=== PATIENT | female | born 1945 | race Caucasian/White ===

== ENCOUNTER 2018-03-15 16:18 | Emergency (ER) | payer MEDICARE, OTHER ==
[~2018-03-15] VITALS: Ht 162.6 cm; Wt 69.9 kg
--- NOTE | 2018-03-15 16:48 | NUR ---
positive r dorsalis pedis and tibialis pulse by doppler
--- NOTE | 2018-03-15 17:39 | ED Lower Extremity ---
General Chief Complaint: Lower Extremity Stated Complaint: R LEG SWELLING Nursing Triage Note: pt presents to ed [facility] accompanied by daughter and with complaints of r calf and foot swelling and pain starting wednesday. Nursing Sepsis Screen: No Definite Risk Source: patient Exam Limitations: no limitations History of Present Illness Date Seen by Provider: Mar 15, 2018 Time Seen by Provider: 16:50 Initial Comments Here with report of right lower extremity edema with concerns of blood clot. Patient has history of previous partial hip replacement and stroke afterwards. She is currently on Eliquis twice a day and is taking that as directed. Patient hasn't had stroke and stroke effects the right side. She does get about with a walker now. She has difficulty with communication. Denies any significant pain to that extremity. Does sleep in a recliner or stay in a recliner very often. Onset: yesterday Severity: moderate Pain/Injury Location: right leg, right foot Method of Injury: unknown Modifying Factors: Improves With Immobilization, Improves With Rest Allergies and Home Medications Allergies Coded Allergies: Itefnre-Tbz-Uap Reductase Inhibitor (Verified Allergy, Unknown, 03/15/18) Patient Home Medication List Home Medication List Reviewed: Yes Review of Systems Constitutional: see HPI; No chills, No fever Respiratory: no symptoms reported Cardiovascular: edema, other (irregular heart beat chronically) Gastrointestinal: No abdominal pain, No nausea, No vomiting Musculoskeletal: see HPI Skin: No change in color, No lesions Psychiatric/Neurological: See HPI Past Cdfskge-Qtasdr-Slxbdy Hx Past Med/Social Hx: Reviewed Nursing Past Med/Soc Hx Patient Social History Alcohol Use: Denies Use Recreational Drug Use: No 2nd Hand Smoke Exposure: No Recent Foreign Travel: No Contact w/Someone Who Travel: No Recent Infectious Disease Expo: No Recent Hopitalizations: No Physical Abuse: No Sexual Abuse: No Seasonal Allergies Seasonal Allergies: No Past Medical History Surgeries: Yes Abdominal, Orthopedic Respiratory: No Cardiac: Yes (athersclerotic heart disease) High Cholesterol, Irregular Heartbeat Neurological: Yes (hemiplegia, hemiparisiscerebral infarct) Gastrointestinal: Yes Gastroesophageal Reflux Musculoskeletal: Yes (generalized muscle weakness) HEENT: No Cancer: No Psychosocial: No Integumentary: No Blood Disorders: No Adverse Reaction/Blood Tranf: No Family Medical History Reviewed Nursing Family Hx Physical Exam Vital Signs Vital Signs - First Documented 03/15/18 16:28 Temp 98.8 Pulse 103 Resp 16 B/P (MAP) 118/100 (106) Pulse Ox 94 Capillary Refill : Less Than 3 Seconds Height, Weight, BMI Height: 5'4.00" Weight: 154lbs. oz. 69.290308sz; BMI Method:Stated General Appearance: WD/WN, no apparent distress Cardiovascular: regular rate, rhythm, no murmur Respiratory: lungs clear, normal breath sounds Gastrointestinal: non tender, soft Legs: left leg non-tender, left leg normal inspection, left leg normal range of motion; right leg swelling, right leg other (non-tender and seems to be simple edema) Ankles: left ankle non-tender, left ankle normal inspection, left ankle normal range of motion; right ankle swelling, right ankle other (nontender and simple edema) Neurologic/Psychiatric: alert, oriented x 3 Skin: normal color, warm/dry Progress/Results/Core Measures Results/Orders Vital Signs/I&O 03/15/18 16:28 Temp 98.8 Pulse 103 Resp 16 B/P (MAP) 118/100 (106) Pulse Ox 94 Blood Pressure Mean: 106 Progress Progress Note : Progress Note Seen and evaluated. Doppler ultrasound pulses to right leg shows strong dorsalis pedis and posterior tibial pulses. Edema seems to be more related to postoperative function and chronic use of the recliner. Patient is on Eliquis appropriately and this decreases my concern for blood clots. I did speak with LISSY Hadley who would be willing to see the patient at the [facility] to help assist with care as the patient and family were not happy with their current primary care doctor. Camilla will assist with orders for the fdc for leg elevation and wraps as needed. Family very appreciative of their consult. Discharge back to [facility]dc with return precautions. Patient and family verbalize understanding instructions and agreement with plan. Departure Impression Primary Impression: Dependent edema Disposition: 01 HOME, SELF-CARE Condition: Stable Departure-Patient Inst. Decision time for Depature: 17:40 Referrals: RAJ NICHOLS DO (PCP/Family) Primary Care Physician RANDY WATTERS MD Patient Instructions: Dependent Edema (DC) Add. Discharge Instructions: All discharge instructions reviewed with patient and/or family. Voiced understanding. Follow-up with LISSY Hadley or Trenton Calderon APRN as discussed. Elevate the foot and leg as much as possible. Return for worse pain, fever, vomiting, weakness, breathing problems or other concerns as needed. MAGDI SMITH MD Mar 15, 2018 17:39
[2018-03-15 18:47] LABS: BILIRUBIN,URINE NEGATIVE (NEGATIVE); CLARITY,URINE SLIGHTLY CLOUDY; COLOR,URINE YELLOW; GLUCOSE, URINE (UA) NEGATIVE (NEGATIVE); KETONES,URINE NEGATIVE (NEGATIVE); LEUKOCYTE ESTERASE ,URINE NEGATIVE (NEGATIVE); NITRITE,URINE NEGATIVE (NEGATIVE); PH,URINE 8 (5-9); PROTEIN,URINE NEGATIVE (NEGATIVE); UROBILINOGEN,URINE NORMAL (NORMAL)
[2018-03-15 18:54] LABS: AMORPHOUS SEDIMENT,UR FEW AMOR PHOSPHATE /LPF; BACTERIA,URINE NEGATIVE /HPF; SQUAMOUS EPITHELIAL CELL,UR 0-2 /HPF
[2018-03-15 18:55] VITALS: BP 118/92
== END 2018-03-15 18:55 | disposition home or self-care (01) ==
LOC: ER 16:21
DX: R60.0 Localized edema (principal); E78.00 Pure hypercholesterolemia, unspecified; I25.10 Atherosclerotic heart disease of native coronary artery without angina pectoris; K21.9 Gastro-esophageal reflux disease without esophagitis; Z86.73 Personal history of transient ischemic attack (TIA), and cerebral infarction without residual deficits; Z88.8 Allergy status to other drugs, medicaments and biological substances; Z79.01 Long term (current) use of anticoagulants; Z98.890 Other specified postprocedural states
CPT/HCPCS: 81000; 99283

== ENCOUNTER 2018-03-21 06:25 | Outpatient (CLI) | payer MEDICARE ==
[~2018-03-21] VITALS: Ht 162.6 cm; Wt 69.9 kg
[2018-03-21] MEDS ORDERED: ATOR20TA66 PO (15:46)
[2018-03-21] MEDS ORDERED: ASPI-586 PO (15:46)
[2018-03-21] MEDS ORDERED: PANT40TA3 PO (15:46)
[2018-03-21] MEDS ORDERED: CARV25TA PO (15:46)
[2018-03-21] MEDS ORDERED: AMLO5TAB7 PO (15:46)
[2018-03-21] MEDS ORDERED: ACET-2267 PO (15:46)
[2018-03-21] MEDS ORDERED: APIX5TAB PO (15:46)
[2018-03-21] MEDS ORDERED: LOSA50TA7 PO (15:46)
== END 2018-03-21 15:47 | disposition home or self-care (01) ==
LOC: PREOP 06:25
PROVIDERS: ATTEND Surgery
DX: Z01.818 Encounter for other preprocedural examination (principal)

== ENCOUNTER 2018-03-28 07:04 | Day surgery (SDC) | payer MEDICARE ==
[~2018-03-28] VITALS: Ht 162.6 cm; Wt 69.9 kg
[~2018-03-28 07:04] MED LIST: ACET-2267 PO; AMLO5TAB7 PO; APIX5TAB PO; ASPI-586 PO; ATOR20TA66 PO; CARV25TA PO; LOSA50TA7 PO; PANT40TA3 PO
[2018-03-28] MEDS ORDERED: NS IV 500 ML 500 ML IV PRN (07:16)
[2018-03-28] MEDS ORDERED: NS IV 500 ML 500 ML ONE (07:16)
[2018-03-28 07:30] VITALS: BP 120/76
[2018-03-28] MEDS ORDERED: MIDAZOLAM 2 MG/2 ML (VERSED) VIAL IVP ONE (07:30)
[2018-03-28] MEDS ORDERED: HURRICAINE EXT TUBE (BENZOCAINE) XX PRN (07:30)
[2018-03-28] MEDS ORDERED: fentaNYL INJECTION 100 MCG/2 ML AMP IVP ONE (07:30)
[2018-03-28] MEDS ORDERED: fentaNYL INJECTION 100 MCG/2 ML AMP ONE (08:15)
[2018-03-28] MEDS ORDERED: MIDAZOLAM 2 MG/2 ML (VERSED) VIAL ONE ×4 (08:16)
[2018-03-28] MEDS ORDERED: HURRICAINE EXT TUBE (BENZOCAINE) ONE (08:16)
--- NOTE | 2018-03-28 08:27 | Conscious Sedation/ASA ---
Conscious Sedation Pre-Proced Time 08:27 ASA Score 2 For ASA 3 and 4: Consider anesthesia and medical clearance. Also, for patients with a history of failed moderate sedation consider anesthesia. Airway Lungs Heart ASA score ASA 1: a normal healthy patient ASA 2: a patient with a mild systemic disease (mid diabetes, controlled hypertension, obesity ASA 3: a patient with a severe systemic disease that limits activity (angina , COPD, prior Myocardial infarction) ASA 4: a patient with an incapacitating disease that is a constant threat to life (CHF, renal failure) ASA 5: a moribund patient not expected to survive 24 hrs. (ruptured aneurysm) ASA 6: a declared brain patient whose organs are being harvested. For emergent operations, add the letter E after the classification Mallampati Classification Grade 1 Sedation Plan Discussed options with patient/fam The patient is an appropriate candidate to undergo the planned procedure, sedation, and anesthesia. The patient immediately re-assessed prior to indication. MARCELINA BARRON MD Mar 28, 2018 08:27
--- NOTE | 2018-03-28 08:45 | Endo Procedure Record ---
Endo Procedure Report Date of Procedure Last Colonoscopy: Yes (unsure) Mar 28, 2018 Surgeon (s) MARCELINA BARRON MD Post Procedure/Op Diagnosis same Procedure Performed endoscopic removal of PEG tube Description of Procedure Anesthesia Type: Conscious Sedation Specimen(s) collected/removed None Description of the Procedure Indication for the procedure: This lady required a PEG tube to manage her nutrition with she was recovering from a stroke. Having received normal eating , it was felt reasonable to remove the PEG tube, using endoscopic snaring technique. Informed consent was obtained after reviewing the procedure in detail. Description of the procedure: She was placed supine on the gurney and conscious sedation achieved. The flexible gastroscope was introduced down the esophagus into the stomach. The flange of the PEG tube was snared and the tube itself disconnected outside the abdominal wall. The flange was removed uneventfully. A sterile dressing was applied over the tube site. She tolerated the procedure well and was taken back to the nursing area in a stable condition. Impression: Endoscopic removal of PEG tube. Copy Copies To 1: RAJ NICHOLS XAVIER M MD Mar 28, 2018 08:45
--- NOTE | 2018-03-28 08:46 | Discharge Inst-Simple/Standard ---
Discharge Inst-Standard Discharge Medications New, Converted or Re-Newed RX: Other Patient Instructions/Follow Up Plan of Care/Instructions/FU: to call, if any concerns arise Activity as Tolerated: Yes Discharge Diet: No Restrictions MARCELINA BARRON MD Mar 28, 2018 08:46
[2018-03-28 09:10] VITALS: BP 150/63
[2018-03-28 09:35] VITALS: BP 127/89
[2018-03-28 10:45] VITALS: BP 127/89
== END 2018-03-28 10:45 | disposition home or self-care (01) ==
LOC: ENDO 07:04
PROVIDERS: ATTEND Surgery
DX: Z86.73 Personal history of transient ischemic attack (TIA), and cerebral infarction without residual deficits (principal); I10 Essential (primary) hypertension; E11.9 Type 2 diabetes mellitus without complications; Z79.82 Long term (current) use of aspirin; Z79.01 Long term (current) use of anticoagulants; Z79.84 Long term (current) use of oral hypoglycemic drugs; Z79.899 Other long term (current) drug therapy

== ENCOUNTER → 2018-07-05 | Outpatient (CLI) | payer MEDICARE ==
[~2018-07-05] MED LIST changes: -AMLO5TAB7 PO; +AMLO5TAB9 PO; +LOSA50TA63 PO; -LOSA50TA7 PO
--- NOTE | 2018-07-05 10:06 | Diagnostic Imaging Report ---
PROCEDURE: US Thyroid. TECHNIQUE: Multiple real-time grayscale images were obtained of the thyroid in various projections. INDICATION: Thyroid mass. No priors. The right thyroid lobe measured 3.8 x 2.3 x 2.8 cm. The largest right lobe mass and its mid to upper third measures 1.2 x 1.0 cm and shows a curvilinear peripheral calcifications and is centrally hypoechoic its borders well-defined. The left lobe 4.6 x 2.3 x 2.0 cm. The largest left lobe mass is in its upper pole measuring 1.7 x 1.6 cm as a relatively homogenous mildly hypoechoic dense mass with well-defined borders. Additional smaller subcentimeter hypoechoic nodules are present few of which are peripheral calcifications. IMPRESSION: Thyroidal volume within normal limits. There are multiple bilateral nodules of mixed echotexture with peripheral calcifications suggestive of multiple adenomas showing varying degrees of cystic degeneration. A followup exam in 6-12 months suggested. Dictated by: Dictated on workstation # [id number]
== END ==
LOC: RAD 08:51
PROVIDERS: ATTEND Internal Medicine
DX: E04.2 Nontoxic multinodular goiter (principal)
CPT/HCPCS: 76536

== ENCOUNTER 2018-07-08 16:05 | Inpatient (IN) | payer MEDICARE ==
[~2018-07-08] VITALS: Ht 160 cm; Wt 68.0 kg
[2018-07-08] VITALS (13 sets, daily range): BP systolic 97–143; BP diastolic 52–84
--- NOTE | 2018-07-08 16:05 | NUR ---
Pt arrives per [facility], pt is confused and combative. Pt can not make words to questions asked. arriving reporting recent stroke of 01/2018 with residual speech issues and right sided weakness. Very difficult to assess with start of [facility] with Dr Potter presenting to room. Pt is agitated and trying to make pt understand testing attempted. is poor historical facts for physicians. went to bathroom just prior to EMS dispatch returning to note pt sitting in her lounge chair and body was shaking, foam from mouth with blood noted. Pt presents incont bowel and bladder with agitation and constant movememt not following commands well.
--- NOTE | 2018-07-08 16:22 | NUR ---
Pt awaited in CT hallway from 1615 as patient on table prior to her same protocol. Transferred pt to table 1622, pt sitting up and won't lie back and not appearance trying to vomit. A trash can placed in front of patient for rapid collection of small undigested food emesis.
[2018-07-08] MEDS ORDERED: ONDANSETRON 4 MG/2 ML (SDV) Z0FRAN ONE (16:24)
--- NOTE | 2018-07-08 16:28 | NUR ---
Zofran [address] in [address] per verbal order of Dr Potter.
[2018-07-08 16:31] LABS: BASOPHILS # (AUTO) 0.1 10^3/uL (0.0-0.1); BASOPHILS % (AUTO) 1 % (0-10); EOSINOPHILS # (AUTO) 0.3 10^3/uL (0.0-0.3); EOSINOPHILS % (AUTO) 4 % (0-10); HEMATOCRIT 44 % (35-52); LYMPHOCYTES # (AUTO) 2.3 X 10^3 (1.0-4.0); LYMPHOCYTES % (AUTO) 30 % (12-44); MEAN CORPUSCULAR HEMOGLOBIN 30 PG (25-34); MEAN CORPUSCULAR HGB CONC 34 G/DL (32-36); MEAN CORPUSCULAR VOLUME 89 FL (80-99); MEAN PLATELET VOLUME 10.9 FL (7.4-10.4); MONOCYTES # (AUTO) 0.7 X 10^3 (0.0-1.0); MONOCYTES % (AUTO) 9 % (0-12); NEUTROPHILS # (AUTO) 4.3 X 10^3 (1.8-7.8); NEUTROPHILS % (AUTO) 56 % (42-75); PLATELET COUNT 202 10^3/uL (130-400); RED CELL DISTRIBUTION WIDTH 13.9 % (10.0-14.5); WHITE BLOOD COUNT 7.6 10^3/uL (4.3-11.0)
--- NOTE | 2018-07-08 16:34 | NUR ---
CT completed and pt returned to room and monitors resuming. Pt placed in a gown after removal of clothing and pericare bath for incont bowel and bladder.
--- NOTE | 2018-07-08 16:40 | NUR ---
Pt is now resting HOB of post pericare and fresh linens. remains present. Pt trying to speak few simple word answers more clearly.
--- NOTE | 2018-07-08 16:45 | NUR ---
Dr Potter discussing with pt and family the need for Keppra.
[2018-07-08 16:46] LABS: INR 1.2 (0.8-1.4); PROTHROMBIN TIME PATIENT 15.8 SEC (12.2-14.7)
[2018-07-08] MEDS ORDERED: LEVETIRACETAM INJECTION 1,000 MG in NS (IVPB) 100 ML IV STA (16:46)
--- NOTE | 2018-07-08 16:47 | Diagnostic Imaging Report ---
PROCEDURE: CT head wo r/o stroke. TECHNIQUE: Multiple contiguous axial images were obtained through the brain without the use of intravenous contrast. Auto Exposure Controls were utilized during the CT exam to meet ALARA standards for radiation dose reduction. INDICATION: Stroke. Anticoagulation therapy. COMPARISON: None. FINDINGS: Chronic encephalomalacia in the left MCA distribution and both occipital lobes, consistent with chronic infarcts. No CT evidence of acute territorial infarction. No intracranial hemorrhage, mass effect, hydrocephalus, or extra-axial fluid collections. The visualized paranasal sinuses and mastoids are clear. Osseous structures are intact. IMPRESSION: 1. No acute intracranial CT findings. 2. Numerous chronic infarcts, as above. Findings discussed with Dr. Nathaly Potter at 4:43 p.m. on 07/08/2018. Dictated by: Dictated on workstation # [id number]
[2018-07-08 17:02] LABS: BAND NEUTROPHILS 1 %; BASOPHILS % (MANUAL) 0 %; EOSINOPHILS % (MANUAL) 6 %; LYMPHOCYTES % (MANUAL) 34 %; MONOCYTES % (MANUAL) 10 %; NEUTROPHILS % (MANUAL) 49 %; RBC MORPH NORMAL
--- NOTE | 2018-07-08 17:02 | NUR ---
Keppra 1000 mg/ NS 100 ml = 110 ml began to infuse as ordered.
--- NOTE | 2018-07-08 17:14 | ED Neurological Problem ---
General Chief Complaint: Neuro-Stroke Like Symptoms Stated Complaint: SEIZURE LIKE SYMPTOMS Source: patient, family, EMS Exam Limitations: no limitations, other (ACUTE MENTAL STATUS-MEDICAL CONDITION) History of Present Illness Date Seen by Provider: Jul 08, 2018 Time Seen by Provider: 16:10 Initial Comments This is a 72 y/o f with pmhx of significant CVAs including a large L MCA with residual slurred speech, dysphagia, mild expressive aphasia and RUE/RLE weakness. Is minimally ambulatory and lives with spouse. Also history of A-fib. Is rate controlled and on Apixaban. Spouse was out of her room approx 20 mins and came back to witness the last 30-60secs of a tonic-clonic seizure with ? increased R sided seizure symptoms. Was then unresponsive and he called EMS. On EMS evaluation pt had normal BS, appeared post-ictal but seemed to be improving. Pt is alert to self only, she has slurred speech and appears confused /disoriented. She denies any pain. Allergies and Home Medications Allergies Coded Allergies: Elfkceo-Znh-Ppu Reductase Inhibitor (Verified Allergy, Unknown, 03/15/18) Home Medications Acetaminophen 500 Mg Tablet, 1,000 MG PO Q8H PRN for PAIN-MILD, (Reported) TAKE 2 (500MG) TABS Amlodipine Besylate 5 Mg Tablet, 5 MG PO DAILY, (Reported) Apixaban 5 Mg Tablet, 5 MG PO BID, (Reported) Aspirin 81 Mg Tablet.dr, 81 MG PO DAILY, (Reported) Atorvastatin Calcium 20 Mg Tablet, 20 MG PO HS, (Reported) Carvedilol 25 Mg Tablet, 50 MG PO BID, (Reported) TAKE 2 (25MG) TABS Losartan Potassium 50 Mg Tablet, 50 MG PO HS, (Reported) Pantoprazole Sodium 40 Mg Tablet.dr, 40 MG PO DAILY, (Reported) Patient Home Medication List Home Medication List Reviewed: Yes Review of Systems Review of Systems Constitutional: No chills; diaphoresis; No fever; weakness (Unable to obtaine 2 /2 altered mental status. ) Past Wvaamav-Xfxcqe-Nuklli Hx Patient Social History 2nd Hand Smoke Exposure: No Recent Foreign Travel: No Contact w/Someone Who Travel: No Recent Hopitalizations: No Seasonal Allergies Seasonal Allergies: No Past Medical History Surgeries: Yes Abdominal, Orthopedic Respiratory: No Cardiac: Yes (athersclerotic heart disease) High Cholesterol, Irregular Heartbeat Neurological: Yes (hemiplegia, hemiparisiscerebral infarct) Stroke Genitourinary: No Gastrointestinal: Yes Gastroesophageal Reflux Musculoskeletal: Yes (generalized muscle weakness) Endocrine: No HEENT: No Cancer: No Psychosocial: No Integumentary: No Blood Disorders: No Adverse Reaction/Blood Tranf: No Physical Exam Vital Signs Capillary Refill : Height, Weight, BMI Height: 5'4.00" Weight: 154lbs. 0.0oz. 69.336829it; 26.4 BMI Method:Stated General Appearance: WD/WN, other (Agitated, confused) HEENT: PERRL/EOMI Neck: full range of motion, normal inspection Respiratory: chest non-tender, normal breath sounds, no respiratory distress, no accessory muscle use Cardiovascular: regular rate, rhythm, no edema, no JVD, no murmur Gastrointestinal: normal bowel sounds, non tender, soft, no pulsatile mass Extremities: normal capillary refill, other (Chronic weakness to RUE and RLE with some mild atrophy of those extremities. No deformities or pain on palpation of extremities/joints. ) Neurologic/Psychiatric: other (Alert to self only, disoriented, names and recognizes spouse at bedside. Follows commands. Some mild R facial weakness/ droop. CN II-XII otherwise appear intact, mild expressive aphasia. RUE/RLE with 4/5 strength, LUE/LLE 5/5 strength. Appears to have intact sensation to all 4 extremities. Unable to follow commands well enough to evaluate cerebellar function with finger to nose or heel to moody. ) Skin: normal color, warm/dry Progress/Results/Core Measures Results/Orders Lab Results Laboratory Tests Test 07/08/18 16:07 Range/Units White Blood Count 7.6 4.3-11.0 10^3/uL Red Blood Count 4.93 4.35-5.85 10^6/uL Hemoglobin 15.0 11.5-16.0 G/DL Hematocrit 44 35-52 % Mean Corpuscular Volume 89 80-99 FL Mean Corpuscular Hemoglobin 30 25-34 PG Mean Corpuscular Hemoglobin Concent 34 32-36 G/DL Red Cell Distribution Width 13.9 10.0-14.5 % Platelet Count 202 130-400 10^3/uL Mean Platelet Volume 10.9 H 7.4-10.4 FL Neutrophils (%) (Auto) 56 42-75 % Lymphocytes (%) (Auto) 30 12-44 % Monocytes (%) (Auto) 9 0-12 % Eosinophils (%) (Auto) 4 0-10 % Basophils (%) (Auto) 1 0-10 % Neutrophils # (Auto) 4.3 1.8-7.8 X 10^3 Lymphocytes # (Auto) 2.3 1.0-4.0 X 10^3 Monocytes # (Auto) 0.7 0.0-1.0 X 10^3 Eosinophils # (Auto) 0.3 0.0-0.3 10^3/uL Basophils # (Auto) 0.1 0.0-0.1 10^3/uL Neutrophils % (Manual) 49 % Lymphocytes % (Manual) 34 % Monocytes % (Manual) 10 % Eosinophils % (Manual) 6 % Basophils % (Manual) 0 % Band Neutrophils 1 % Blood Morphology Comment NORMAL Prothrombin Time 15.8 H 12.2-14.7 SEC INR Comment 1.2 0.8-1.4 Activated Partial Thromboplast Time 23 L 24-35 SEC Sodium Level 142 135-145 MMOL/L Potassium Level 4.7 3.6-5.0 MMOL/L Chloride Level 99 98-107 MMOL/L Carbon Dioxide Level 19 L 21-32 MMOL/L Anion Gap 24 H 5-14 MMOL/L Blood Urea Nitrogen 34 H 7-18 MG/DL Creatinine 1.36 H 0.60-1.30 MG/DL Estimat Glomerular Filtration Rate 38 BUN/Creatinine Ratio 25 Glucose Level 142 H 70-105 MG/DL Calcium Level 9.6 8.5-10.1 MG/DL Corrected Calcium 9.3 8.5-10.1 MG/DL Total Bilirubin 0.6 0.1-1.0 MG/DL Aspartate Amino Transf (AST/SGOT) 15 5-34 U/L Alanine Aminotransferase (ALT/SGPT) 12 0-55 U/L Alkaline Phosphatase 93 40-136 U/L Troponin T 18 H <=10 NG/L Total Protein 7.1 6.4-8.2 GM/DL Albumin 4.4 3.2-4.5 GM/DL My Orders Orders - NATHALY GUIDRY DO Ct Head Wo-R/O Stroke (07/08/18 16:21) Continuous Ekg Monitoring (07/08/18 16:22) Orthostatic Vital Signs (Adult (07/08/18 16:22) Cbc And Manual Diff (07/08/18 16:22) Comprehensive Metabolic Panel (07/08/18 16:22) Partial Thromboplastin Time (07/08/18 16:22) Protime With Inr (07/08/18 16:22) Troponin T (07/08/18 16:22) Ua Culture If Indicated (07/08/18 16:22) Ekg Tracing (07/08/18 16:22) Ondansetron Injection (Zofran Injectio (07/08/18 16:24) Levetiracetam Injection (Keppra Injectio (07/08/18 16:46) Medications Given in ED Current Medications Medications Dose Ordered Sig/Deanna Route Start Time Stop Time Status Last Admin Dose Admin Ondansetron HCl 4 mg STK-MED ONCE .ROUTE 07/08/18 16:24 07/08/18 16:28 DC 07/08/18 16:28 4 MG Progress Progress Note : Time: 16:[address] head with no acute findings. Pt with some nausea/vomiting in CT but has since had gradual improvement and is almost at baseline per spouse at bedside. Pt is more alert and is not confused. She has some continued slurred speech/ mild aphasia that is part of her residual deficits. Unclear cause of primary seizure. Per spouse pt does not have a seizure disorder and has never been on seizure medication. Electrolytes reassuring. Mild elevation of troponin but no c /o CP and EKG with no acute findings. Mild RACHEL on labs as well. Pt accepted by Dr. Bolivar at [place] and will be transferred there. Initial ECG Impression Date: Jul 08, 2018 Initial ECG Impression Time: 17:48 Initial ECG Intervals NSR, HR 76, no significant ST or T wave changes. Diagnostic Imaging Comments CT Head IMPRESSION: 1. No acute intracranial CT findings. 2. Numerous chronic infarcts, as above. Findings discussed with Dr. Nathaly Guidry at 4:43 p.m. on 07/08/2018. Departure Communication (Admissions) Time/Spoke to Admitting Phy: 17:[address] Bolivar wind farm operations manager hospitalist at [facility] who is agreeable to admission. Impression Primary Impression: Seizure Additional Impression: Seizure as late effect of cerebrovascular accident (CVA) Disposition: ADMITTED INPATIENT Condition: Stable Admissions Decision to Admit Reason: Admit from ER (General) Decision to Admit/Date: Jul 08, 2018 Time/Decision to Admit Time: 17:00 Transfer Time Spoke to Accepting Phy: 17:00 Transfer Progress Notes Discussed with Dr. Bolivar who is agreeable to admission. Recommendations to continue Keppra and Apixaban and other home medications. Will hold ASA. Transportation being arranged by EMS Method of Transfer: EMS Departure-Patient Inst. Referrals: RAJ NICHOLS DO (PCP/Family) Primary Care Physician NATHALY GUIDRY DO Jul 08, 2018 17:14
[2018-07-08] MEDS ORDERED: TETANUS,DIPTH,PERTUSS P/F (BOOSTRIX) 0.5 ML VIAL IM ONE (17:15)
--- NOTE | 2018-07-08 17:17 | NUR ---
Keppra infused. Pt has had no seizure lke activity in ER.
[2018-07-08 17:24] LABS: CREATININE SERUM 1.36 MG/DL (0.60-1.30); POTASSIUM 4.7 MMOL/L (3.6-5.0)
[2018-07-08 17:25] LABS: ALBUMIN 4.4 GM/DL (3.2-4.5); BILIRUBIN,TOTAL 0.6 MG/DL (0.1-1.0); CALCIUM 9.6 MG/DL (8.5-10.1); TOTAL PROTEIN 7.1 GM/DL (6.4-8.2)
--- NOTE | 2018-07-08 17:30 | NUR ---
[facility]
--- NOTE | 2018-07-08 18:00 | NUR ---
[facility] here, report given.
--- NOTE | 2018-07-08 18:10 | NUR ---
Pt departing to [facility] via [facility], Code yellow urgent. Pt has improved, chronic or residual effects remaining.
[2018-07-08 19:45] LABS: BASOPHILS % (AUTO) 0 % (0-10); EOSINOPHILS # (AUTO) 0.1 10^3/uL (0.0-0.3); EOSINOPHILS % (AUTO) 1 % (0-10); HEMATOCRIT 42 % (35-52); HEMOGLOBIN 14.3 G/DL (11.5-16.0); LYMPHOCYTES # (AUTO) 1.1 X 10^3 (1.0-4.0); LYMPHOCYTES % (AUTO) 11 % (12-44); MEAN CORPUSCULAR HEMOGLOBIN 30 PG (25-34); MEAN CORPUSCULAR HGB CONC 34 G/DL (32-36); MEAN CORPUSCULAR VOLUME 87 FL (80-99); MEAN PLATELET VOLUME 10.5 FL (7.4-10.4); MONOCYTES # (AUTO) 0.4 X 10^3 (0.0-1.0); MONOCYTES % (AUTO) 4 % (0-12); NEUTROPHILS # (AUTO) 8.4 X 10^3 (1.8-7.8); NEUTROPHILS % (AUTO) 84 % (42-75); PLATELET COUNT 174 10^3/uL (130-400); RED CELL DISTRIBUTION WIDTH 14.5 % (10.0-14.5); WHITE BLOOD COUNT 9.9 10^3/uL (4.3-11.0)
--- NOTE | 2018-07-08 19:45 | NUR ---
[facility] here with patient. Patient transferred to bed and connected to monitor. VSS. Afebrile. Patient displaying word salad at times. Can speak clearly at times as well. Right sided facial droop. [employer] and pushes/pulls only slight right side weakness, almost equal. PERRL. Lung sounds clear. Heart tones normal. Bowel sounds positive. Report given to retail client solutions consultant oncoming RN shortly thereafter.
[2018-07-08] MEDS: NS IV 1000 ML 1,000 ML IV SCH (20:00)
[2018-07-08 20:06] LABS: ALBUMIN 4.2 GM/DL (3.2-4.5); BILIRUBIN,TOTAL 0.9 MG/DL (0.1-1.0); CALCIUM 10.1 MG/DL (8.5-10.1); CREATININE SERUM 1.23 MG/DL (0.60-1.30); POTASSIUM 4.1 MMOL/L (3.6-5.0); TOTAL PROTEIN 6.6 GM/DL (6.4-8.2)
--- NOTE | 2018-07-08 20:30 | NUR ---
PT'S HERE. HE STATES THE MILD RIGHT SIDED WEAKNESS, MILD FACIAL DROOP, AND DIFFICULTY SPEAKING ARE THE SAME PRIOR TO HOSPITALIZATION. PT DOES HAVE WORD SALAD AT TIMES BUT HE STATES THIS IS NOT DIFFERENT FROM PRIOR SPEECH
[2018-07-08] MEDS ORDERED: CARVEDILOL 12.5 MG (COREG) TABLET PO SCH (21:00)
[2018-07-08] MEDS ORDERED: LOSARTAN 50 MG (COZAAR) TAB PO SCH (21:00)
[2018-07-08] MEDS ORDERED: ACETAMINOPHEN 325 MG TABLET ONE (21:08)
[2018-07-08] MEDS ORDERED: ACETAMINOPHEN 325 MG TABLET PO PRN (21:15)
[2018-07-08] MEDS: APIXABAN 5 MG (ELIQUIS) TABLET PO SCH (21:17)
[2018-07-08 22:18] LABS: BILIRUBIN,URINE NEGATIVE (NEGATIVE); CLARITY,URINE CLEAR; COLOR,URINE YELLOW; GLUCOSE, URINE (UA) NEGATIVE (NEGATIVE); KETONES,URINE NEGATIVE (NEGATIVE); LEUKOCYTE ESTERASE ,URINE 1+ (NEGATIVE); NITRITE,URINE NEGATIVE (NEGATIVE); PH,URINE 7 (5-9); PROTEIN,URINE 1+ (NEGATIVE); UROBILINOGEN,URINE NORMAL (NORMAL)
[2018-07-08 22:24] LABS: BACTERIA,URINE MODERATE /HPF; SQUAMOUS EPITHELIAL CELL,UR 0-2 /HPF
[2018-07-08 22:25] LABS: AMORPHOUS SEDIMENT,UR FEW AMOR PHOSPHATE /LPF
[2018-07-09] VITALS (13 sets, daily range): BP systolic 99–165; BP diastolic 44–94
[2018-07-09] MEDS: APIXABAN 5 MG (ELIQUIS) TABLET PO SCH ×2 (08:29→20:21)
[2018-07-09] MEDS: PANTOPRAZOLE 40 MG (PROTONIX) TAB PO SCH (08:29)
[2018-07-09] MEDS: LEVETIRACETAM 500 MG (KEPPRA) TAB PO SCH ×2 (08:29→20:21)
[2018-07-09] MEDS ORDERED: amLODIPine 5 MG (NORVASC) TAB PO SCH (09:00)
--- NOTE | 2018-07-09 11:03 | History & Physical-Hospitalist ---
History of Present Illness HPI/Chief Complaint Mrs. Tineo is a 72-year-old white female who was found by her apparently in her chair convulsing he witnessed 30-60 minutes of activity according to the emergency room practitioner at [facility] who talk with her . The was not presents morning for me to confer with. I Mrs. Tineo reports a very strange sensation that she had difficulty describing. 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 She has had no known past history of a seizure disorder. She cannot tell me whether or not there is any loss of bowel or bladder control but does report that the sides of her tongue or sore. The was in the room this morning and told the nurse that he felt she was about back to baseline mental status compared to a bout of confusion but most of the night to clear as well as increased weakness that he now feels is back to baseline in the right upper and lower extremity. She denied any odd smells and I'm only able to understand about half of what she says with some inappropriate word usage which apparently used to be worse. She reports that she can use a walker for short distances but this all occurred while she was sitting in her chair where she spends a good deal of time. Past medical history of CVA is a pertinent for reported paroxysmal atrial fibrillation and long-standing hypertension and hyperlipidemia. There is reported history of atherosclerosis but the patient didn't think that she had a heart attack in the past or any history of stent placement. Other than echocardiography she's not aware of any past procedures from a cardiac standpoint. Date Seen 07/09/18 Time Seen by a Provider: 10:15 Attending Physician Elbert Bolivar MD PCP Jason Cruz MD Referring Physician Date of Admission Jul 08, 2018 at 17:02 Home Medications & Allergies Home Medications Reviewed patient Home Medication Reconciliation performed by pharmacy medication reconciliations electronic organ technician and/or nursing. Patients Allergies have been reviewed. Allergies Allergies Coded Allergies Ygwmggr-Szj-Auf Reductase Inhibitor (Verified Allergy, Unknown, 03/15/18) Past Mteegln-Yqoirs-Fbgfih Hx Past Med/Social Hx: Reviewed and Corrections made Patient Social History Alcohol Use: Rarely Uses Recreational Drug Use: No Smoking Status: Never a Smoker 2nd Hand Smoke Exposure: No Recent Foreign Travel: No Contact w/other who traveled: No Recent Hopitalizations: No Recent Infectious Disease Expo: No Seasonal Allergies Seasonal Allergies: No Past Medical History Surgeries: Abdominal, Orthopedic Cardiac: Atrial Fibrillation, High Cholesterol, Hypertension, Irregular Heartbeat Neurological: Stroke Gastrointestinal: Gastroesophageal Reflux Endocrine: Diabetes, Non-Insulin dep History of Blood Disorders: No Adverse Reaction to Blood Billings: No Review of Systems Constitutional: no symptoms reported; No see HPI, No chills, No diaphoresis, No dizziness, No fever, No malaise; weakness EENTM: other (Tongue pain only reported) Respiratory: No no symptoms reported, No see HPI, No cough, No dyspnea on exertion, No hemoptysis, No orthopnea, No phlegm, No short of breath, No stridor , No wheezing Cardiovascular: see HPI; No chest pain; edema; No Hx of Intervention; palpitations; No syncope, No vascular heart diseas, No other Physical Exam Physical Exam Vital Signs Vital Signs - First Documented 07/08/18 16:05 Temp 97.5 Pulse 80 Resp 24 B/P (MAP) 116/66 Pulse Ox 95 O2 Delivery Nasal Cannula O2 Flow Rate 4.00 Capillary Refill : Less Than 3 Seconds Height, Weight, BMI Height: 5'3.00" Weight: 149lbs. 9.0oz. 67.124230bc; 26.4 BMI Method:Stated General Appearance: No Apparent Distress, WD/WN HEENT: Other (There is ecchymosis involving both lateral aspects of the tongue. Tip of the tongue is unremarkable oral cavity is otherwise unremarkable.) Neck: Full Range of Motion, Normal Inspection, Non Tender Respiratory: Chest Non Tender, Lungs Clear, Normal Breath Sounds, No Accessory Muscle Use, No Respiratory Distress Cardiovascular: Regular Rate, Rhythm, No Edema, No Gallop, No JVD, No Murmur, Normal Peripheral Pulses Gastrointestinal: Normal Bowel Sounds, No Organomegaly, No Pulsatile Mass, Non Tender, Soft Extremity: Normal Capillary Refill, Normal Inspection, Normal Range of Motion, Non Tender, No Calf Tenderness, No Pedal Edema Neurologic/Psychiatric: Alert, Normal Mood/Affect, Facial Droop (Slightly on right), Motor Weakness (Right system development manager and upper extremity strength are 4-5+ as is the right lower extremity 5+ strength on the left side), Other (Patient appears to understand relatively well answering simple questions appropriately but exhibits significant expressive aphasia with inappropriate word use about half the time. This makes history taking difficult she is oriented to person and place and was difficult to tell from her answer about time.) Skin: Normal Color, Warm/Dry Results Results/Procedures Labs Laboratory Tests 07/08/18 16:07 07/08/18 19:35 Patient resulted labs reviewed. Assessment/Plan Admission Diagnosis A/P 1. Considering husbands history obtained through [facility] medical staff, a protracted postictal state with what sounds like likely Brannon's paralysis currently resolved in addition to lateral tongue trauma a generalized seizure is highly likely. With history of large left MCA CVA some time last year recurrence is likely so agree with continuing Keppra 500 mg twice a day and will monitor. 2. Troponin level not the selective troponin I was mildly elevated with an EKG that did not reveal any acute ischemic change although there is a lot of baseline wander. We'll repeat EKG and troponin I level but highly doubt acute coronary syndrome more compatible with a type II MS. 3. Last night CT head was unremarkable weakness can be explained by Brannno's paralysis which is currently resolved no evidence for acute CVA. 4. Patient is had relative hypotension and sinus bradycardia with a heart rate in the 50s and 60s we'll continue to hold carvedilol and her other antihypertensive medications will likely be resuming as blood pressure and heart rate allow. 5. Paroxysmal atrial fibrillation we'll continue Eliquis and a baby aspirin daily. Studies have not shown any benefit with the so-called triple therapy but definite increase bleeding risk will DC Plavix Admission Status: Inpatient Order (span 2 midnights) Reason for Inpatient Admission: See admission diagnosis Clinical Quality Measures DVT/VTE Risk/Contraindication: Risk Factor Score Per Nursin RFS Level Per Nursing on Admit: 4+=Very High Stroke: Date of last known well: Jul 08, 2018 ELBERT BOLIVAR MD Jul 09, 2018 11:03
[2018-07-09] MEDS: NS IV 1000 ML 1,000 ML IV SCH ×2 (13:30→22:17)
[2018-07-09] MEDS ORDERED: POTA10CA43 PO (15:48)
[2018-07-10] VITALS: BP 131/83
[2018-07-10 04:00] VITALS: BP 139/79
[2018-07-10] MEDS: PANTOPRAZOLE 40 MG (PROTONIX) TAB PO SCH (08:42)
[2018-07-10] MEDS: LEVETIRACETAM 500 MG (KEPPRA) TAB PO SCH (08:42)
[2018-07-10] MEDS: APIXABAN 5 MG (ELIQUIS) TABLET PO SCH (08:42)
[2018-07-10] MEDS ORDERED: LEVE500T6 PO (09:58)
[2018-07-10] MEDS ORDERED: CARV25TA PO (09:58)
--- NOTE | 2018-07-11 15:58 | Physician Query-Final Dx ---
Final Diagnosis Give Final Diagnosis Please give Final Diagnosis HAY DAUGHERTY Jul 11, 2018 15:58
--- NOTE | 2018-07-12 14:13 | Physician Query Clarification ---
PQ-Uncertain Diagnosis Admission/Discharge Admission Date: Jul 08, 2018 at 17:02 Discharge Date: Jul 10, 2018 at 11:21 The medical record reflects the following clinical scenario: History/Risk Factors: Tonic clonic seizure, Paroxysmal atrial fibrillation, Brannon's paralysis, hx CVA with rt hemiplegia, slurred speech, aphasia, dyphagia, RACHEL Clinical Findings: Troponin T 18 Treatment: IV Keppra, IV sodium chloride Question: Is Type 2 VT a clinically valid diagnosis? Type 2 VT was documented in the H&P with no further documentation in the medical record. Please document a response below. PHYSICIAN RESPONSE Diagnosis clinically valid: No, conditon ruled out In responding to this query, please exercise your independent professional judgment. The purpose of this communication is to more accurately reflect the complexity of your patients condition. The fact that a question is asked does not imply that any particular answer is desired or expected. Thank you for your timely response to this clarification. Requestors name: Leigha THIS PHYSICIAN QUERY FORM IS A PERMANENT PART OF THE MEDICAL RECORD LEIGHA REARDON Jul 12, 2018 14:13 ISABEL FARRIS MD July 15, 2018 09:04
== END 2018-07-10 11:21 | disposition home or self-care (01) | DRG 101 ==
LOC: EDUNIT# 16:06 → ER FS 16:07 → ICU 17:02
PROVIDERS: ADMIT Internal Medicine; ATTEND Internal Medicine
DX: G40.409 Other generalized epilepsy and epileptic syndromes, not intractable, without status epilepticus (principal); G83.84 Todd's paralysis (postepileptic); I48.0 Paroxysmal atrial fibrillation; I69.351 Hemiplegia and hemiparesis following cerebral infarction affecting right dominant side; I69.328 Other speech and language deficits following cerebral infarction; I69.391 Dysphagia following cerebral infarction; N17.9 Acute kidney failure, unspecified; R13.10 Dysphagia, unspecified; I69.320 Aphasia following cerebral infarction; I25.10 Atherosclerotic heart disease of native coronary artery without angina pectoris; E78.5 Hyperlipidemia, unspecified; K21.9 Gastro-esophageal reflux disease without esophagitis; I95.9 Hypotension, unspecified; R00.1 Bradycardia, unspecified; S09.93XA Unspecified injury of face, initial encounter; X58.XXXA Exposure to other specified factors, initial encounter; Z23 Encounter for immunization
CPT/HCPCS: 36415; 70450; 80053; 81000; 84484; 85007; 85025; 85027; 85610; 85730; 87077; 87088; 87186; 90471; 90715; 93005; 96374; 96375

== ENCOUNTER → 2018-07-21 | Outpatient (CLI) | payer MEDICARE, MEDICAID ==
[~2018-07-21] MED LIST changes: +LEVE500T6 PO; +POTA10CA43 PO
== END ==
LOC: CARD 12:46
PROVIDERS: ATTEND Internal Medicine Cardiovascular Disease
DX: I63.9 Cerebral infarction, unspecified (principal); I48.2 Chronic atrial fibrillation; R06.09 Other forms of dyspnea; I10 Essential (primary) hypertension; E78.2 Mixed hyperlipidemia
CPT/HCPCS: 93306

== ENCOUNTER → 2018-07-27 | Outpatient (CLI) | payer MEDICARE, MEDICAID ==
[~2018-07-27] VITALS: Ht 160 cm; Wt 66.2 kg
[~2018-07-27] MED LIST changes: +CATHETER FLUSH 10 ML SYR IV PRN; +REGADENOSON 0.4 MG/5 ML SYR (LEXISCAN) IV ONE
--- NOTE | 2018-07-27 15:30 | STRESS TEST ---
DATE OF SERVICE: LEXISCAN MYOVIEW STRESS TEST REPORT REFERRING PHYSICIAN: Dr. Cruz. Baseline heart rate is 63. Baseline blood pressure 171/93. Baseline EKG is sinus rhythm with occasional atrial premature contractions. In summary, the patient was injected with 10.27 mCi of technetium-99 Myoview and the resting images were obtained. Then, the patient received 0.4 mg of Lexiscan followed by 28.7 mCi of technetium-99 Myoview. Throughout the test, there were no EKG changes. The resting and stress images were reviewed and compared in the short axis, horizontal long axis, and vertical long axis views. Review of the images showed breast attenuation with reversible ischemia involving the mid to apical anterior wall, true apex and mid to apical inferior wall and inferoseptum. SSS is 37. SDS 12. TID value 0.99. On the gated images, the left ventricle appeared to be normal size with diffuse left ventricular hypokinesia, calculated ejection fraction 45%. CONCLUSION: 1. The patient tolerated Lexiscan well. 2. Breast attenuation with reversible ischemia involving the mid to apical inferior wall, true apex, mid to apical anterior wall and mid to apical anteroseptum and inferoseptum. 3. Prominent left ventricle with diffuse left ventricular hypokinesia, calculated ejection fraction 49%. Job ID: [id number] DocumentID: [id number] Dictated Date: 07/27/2018 15:07:57 Vendor Representatives Date: 07/27/2018 15:29:35 Dictated By: MEAGAN GARCIA MD
== END ==
LOC: CARD 08:01
PROVIDERS: ATTEND Internal Medicine Cardiovascular Disease
DX: I63.9 Cerebral infarction, unspecified (principal); I48.2 Chronic atrial fibrillation; R06.09 Other forms of dyspnea; I10 Essential (primary) hypertension; E78.2 Mixed hyperlipidemia
CPT/HCPCS: 78452; 93017

== ENCOUNTER 2018-08-03 10:47 | Day surgery (SDC) | payer MEDICARE, MEDICAID ==
[~2018-08-03] VITALS: Ht 160 cm; Wt 68.0 kg
[2018-08-03] VITALS (11 sets, daily range): BP systolic 118–186; BP diastolic 73–99
[~2018-08-03 10:47] MED LIST changes: -CATHETER FLUSH 10 ML SYR IV PRN; -REGADENOSON 0.4 MG/5 ML SYR (LEXISCAN) IV ONE
--- OUTSIDE RECORDS SUMMARY | 2018-08-03 10:57 | XMS REPORT | Continuity of Care Document ---
Author Organization Unknown Address Unknown Allergies Active Description Code Type Severity Reaction Onset Reported/Identified Relationship to Patient Clinical Status Yes Chjmwmp-[id number]-Zwt Reductase Inhibitor [id number] Drug Allergy Unknown N/A 03/15/2018 Medications There is no data. Problems Date Dx Coded Attending Type Code Diagnosis Diagnosed By 03/15/2018 MAGDI SMIHT MD, Ot E78.00 PURE HYPERCHOLESTEROLEMIA, UNSPECIFIED 03/15/2018 MAGDI SMITH MD, Ot I25.10 ATHSCL HEART DISEASE OF [place] CORONARY 03/15/2018 MAGDI SMITH MD Ot K21.9 GASTRO-ESOPHAGEAL REFLUX DISEASE WITHOUT 03/15/2018 MAGDI SMITH MD Ot R60.0 LOCALIZED EDEMA 03/15/2018 MAGDI SMITH MD Ot Z79.01 MCC (CURRENT) USE OF ANTICOAGULANT 03/15/2018 MAGDI SMITH MD Ot Z86.73 PRSNL HX OF TIA (TIA), AND CEREB INFRC W 03/15/2018 MAGDI SMITH MD Ot Z88.8 ALLERGY STATUS TO OTH DRUG/MEDS/BIOL SUB 03/15/2018 MAGDI SMITH MD Ot Z98.890 OTHER SPECIFIED POSTPROCEDURAL STATES 03/17/2018 MAGDI SMITH MD, Ot E78.00 PURE HYPERCHOLESTEROLEMIA, UNSPECIFIED 03/17/2018 MAGDI SMITH MD Ot I25.10 ATHSCL HEART DISEASE OF [place] CORONARY 03/17/2018 MAGDI SMITH MD Ot K21.9 GASTRO-ESOPHAGEAL REFLUX DISEASE WITHOUT 03/17/2018 MAGDI SMITH MD Ot R60.0 LOCALIZED EDEMA 03/17/2018 MAGDI SMITH MD Ot Z79.01 PUBLIC INFORMATION SPECIALIST (CURRENT) USE OF ANTICOAGULANT 03/17/2018 MAGDI SMITH MD Ot Z86.73 PRSNL HX OF TIA (TIA), AND CEREB INFRC W 03/17/2018 MAGDI SMITH MD Ot Z88.8 ALLERGY STATUS TO [facility] DRUG/MEDS/BIOL SUB 03/17/2018 MAGDI SMITH MD Ot Z98.890 OTHER SPECIFIED POSTPROCEDURAL STATES 03/21/2018 MARCELINA BARRON MD, Ot Z01.818 ENCOUNTER FOR OTHER PREPROCEDURAL EXAMIN 03/22/2018 MARCELINA BARRON MD, Ot Z01.818 ENCOUNTER FOR OTHER PREPROCEDURAL EXAMIN 03/28/2018 MARCELINA BARRON MD, Ot E11.9 TYPE 2 DIABETES MELLITUS WITHOUT COMPLIC 03/28/2018 MARCELINA BARRON MD, Ot I10 ESSENTIAL (PRIMARY) HYPERTENSION 03/28/2018 MARCELINA BARRON MD, Ot Z79.01 MCC (CURRENT) USE OF ANTICOAGULANT 03/28/2018 MARCELINA BARRON MD, Ot Z79.82 PUBLIC INFORMATION SPECIALIST (CURRENT) USE OF ASPIRIN 03/28/2018 MARCELINA BARRON MD, Ot Z79.84 PUBLIC INFORMATION SPECIALIST (CURRENT) USE OF ORAL HYPOGLYC 03/28/2018 MARCELINA BARRON MD, Ot Z79.899 OTHER PUBLIC INFORMATION SPECIALIST (CURRENT) DRUG THERAPY 03/28/2018 MARCELINA BARRON MD, Ot Z86.73 PRSNL HX OF TIA (TIA), AND CEREB INFRC W 03/30/2018 MARCELINA BARRON MD, Ot E11.9 TYPE 2 DIABETES MELLITUS WITHOUT COMPLIC 03/30/2018 MARCELINA BARRON MD, Ot I10 ESSENTIAL (PRIMARY) HYPERTENSION 03/30/2018 MARCELINA BARRON MD Ot Z79.01 MCC (CURRENT) USE OF ANTICOAGULANT 03/30/2018 MARCELINA BARRON MD, Ot Z79.82 PUBLIC INFORMATION SPECIALIST (CURRENT) USE OF ASPIRIN 03/30/2018 MARCELINA BARRON MD, Ot Z79.84 PUBLIC INFORMATION SPECIALIST (CURRENT) USE OF ORAL HYPOGLYC 03/30/2018 MARCELINA BARRON MD, Ot Z79.899 OTHER MCC (CURRENT) DRUG THERAPY 03/30/2018 MARCELINA BARRON MD, Ot Z86.73 PRSNL HX OF TIA (TIA), AND CEREB INFRC W 07/08/2018 RANDY WATTERS MD Ot E04.2 NONTOXIC MULTINODULAR GOITER 07/10/2018 ISABEL FARRIS MD Ot E78.5 HYPERLIPIDEMIA, UNSPECIFIED 07/10/2018 KALEIGH MELCHOR, ISABEL Becerra Ot G40.409 OTH GENERALIZED EPILEPSY, NOT INTRACTABL 07/10/2018 KALEIGH MELCHOR, ISABEL Becerra Ot 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) 07/10/2018 ISABEL FARRIS MD Ot I21.A1 MYOCARDIAL INFARCTION TYPE 2 07/10/2018 ISABEL FARRIS MD Ot I25.10 ATHSCL HEART DISEASE OF [place] CORONARY 07/10/2018 ISABEL FARRIS MD Ot I48.0 PAROXYSMAL ATRIAL FIBRILLATION 07/10/2018 ISABEL FARRIS MD Ot I69.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 FOLLOWING CEREBRAL INFARCTION 07/10/2018 ISABEL FARRIS MD Ot I69.328 OTH SPEECH/LANG DEFICITS FOLLOWING CEREB 07/10/2018 ISABEL FARRIS MD Ot I69.351 HEMIPLGA FOLLOWING CEREBRAL INFRC AFF RI 07/10/2018 ISABEL FARRIS MD Ot I69.391 DYSPHAGIA FOLLOWING CEREBRAL INFARCTION 07/10/2018 ISABEL FARRIS MD Ot I95.9 HYPOTENSION, UNSPECIFIED 07/10/2018 ISABEL FARRIS MD Ot K21.9 GASTRO-ESOPHAGEAL REFLUX DISEASE WITHOUT 07/10/2018 ISABEL FARRIS MD Ot N17.9 ACUTE KIDNEY FAILURE, UNSPECIFIED 07/10/2018 ISABEL FARRIS MD Ot R00.1 BRADYCARDIA, UNSPECIFIED 07/10/2018 ISABEL FARRIS MD Ot R13.10 DYSPHAGIA, UNSPECIFIED 07/10/2018 ISABEL FARRIS MD Ot S09.93XA UNSPECIFIED INJURY OF FACE, INITIAL ENCO 07/10/2018 ISABEL FARRIS MD Ot X58.XXXA EXPOSURE TO OTHER SPECIFIED FACTORS, INI 07/10/2018 KALEIGH MELCHOR, ISABEL Becerra Ot Z23 ENCOUNTER FOR IMMUNIZATION 07/21/2018 RANDY WATTERS MD Ot E04.2 NONTOXIC MULTINODULAR GOITER 07/22/2018 MEAGAN GARCIA MD Ot E78.2 MIXED HYPERLIPIDEMIA 07/22/2018 MEAGAN GARCIA MD Ot I10 ESSENTIAL (PRIMARY) HYPERTENSION 07/22/2018 MEAGAN GARCIA MD Ot I48.2 CHRONIC ATRIAL FIBRILLATION 07/22/2018 MEAGAN GARCIA MD Ot I63.9 CEREBRAL INFARCTION, UNSPECIFIED 07/22/2018 MEAGAN GARCIA MD Ot R06.09 OTHER FORMS OF DYSPNEA Procedures There is no data. Results Test Result Range Complete urinalysis with reflex to culture - 03/15/18 18:40 Urine color determination YELLOW NRG Urine clarity determination SLIGHTLY CLOUDY NRG Urine pH measurement by test strip 8 5-9 Specific gravity of urine by test strip 1.010 1.016-1.022 Urine protein assay by test strip, semi-quantitative NEGATIVE NEGATIVE Urine glucose detection by automated test strip NEGATIVE NEGATIVE Erythrocytes detection in urine sediment by light microscopy NEGATIVE NEGATIVE Urine ketones detection by automated test strip NEGATIVE NEGATIVE Urine nitrite detection by test strip NEGATIVE NEGATIVE Urine total bilirubin detection by test strip NEGATIVE NEGATIVE Urine urobilinogen measurement by automated test strip (mass/volume) NORMAL NORMAL Urine leukocyte esterase detection by dipstick NEGATIVE NEGATIVE Automated urine sediment erythrocyte count by microscopy (number/high power field) NONE NRG Automated urine sediment leukocyte count by microscopy (number/high power field) NONE NRG Bacteria detection in urine sediment by light microscopy NEGATIVE NRG Squamous epithelial cells detection in urine sediment by light microscopy 0-2 NRG Crystals detection in urine sediment by light microscopy NONE NRG Casts detection in urine sediment by light microscopy NONE NRG Mucus detection in urine sediment by light microscopy NEGATIVE NRG Complete urinalysis with reflex to culture NO NRG Amorphous sediment detection in urine sediment by light microscopy FEW JORGE PHOSPHATE NRG Blood CBC with ordered manual differential panel - 07/08/18 16:07 Blood leukocytes automated count (number/volume) 7.6 10*3/uL 4.3-11.0 Blood erythrocytes automated count (number/volume) 4.93 10*6/uL 4.35-5.85 Venous blood hemoglobin measurement (mass/volume) 15.0 g/dL 11.5-16.0 Blood hematocrit (volume fraction) 44 % 35-52 Automated erythrocyte mean corpuscular volume 89 [foz_us] 80-99 Automated erythrocyte mean corpuscular hemoglobin (mass per erythrocyte) 30 pg 25-34 Automated erythrocyte mean corpuscular hemoglobin concentration measurement (mass/volume) 34 g/dL 32-36 Automated erythrocyte distribution width ratio 13.9 % 10.0- 14.5 Automated blood platelet count (count/volume) 202 10*3/uL 130-400 Automated blood platelet mean volume measurement 10.9 [foz_us] 7.4-10.4 Automated blood neutrophils/100 leukocytes 56 % 42-75 Automated blood lymphocytes/100 leukocytes 30 % 12-44 Blood monocytes/100 leukocytes 10 % NRG Automated blood eosinophils/100 leukocytes 4 % 0-10 Automated blood basophils/100 leukocytes 1 % 0-10 Blood neutrophils automated count (number/volume) 4.3 10*3 1.8-7.8 Blood lymphocytes automated count (number/volume) 2.3 10*3 1.0-4.0 Blood monocytes automated count (number/volume) 0.7 10*3 0.0- 1.0 Automated eosinophil count 0.3 10*3/uL 0.0-0.3 Automated blood basophil count (count/volume) 0.1 10*3/uL 0.0-0.1 Manual blood segmented neutrophils/100 leukocytes 49 % NRG Blood band neutrophils/100 leukocytes 1 % NRG Manual blood lymphocytes/100 leukocytes 34 % NRG Manual eosinophils/100 leukocytes in nose 6 % NRG Manual blood basophils/100 leukocytes 0 % NRG Blood erythrocyte morphology finding identification NORMAL NRG PT panel in platelet poor plasma by coagulation assay - 07/08/18 16:07 Prothrombin time (PT) in platelet poor plasma by coagulation assay 15.8 s 12.2-14.7 INR in platelet poor plasma or blood by coagulation assay 1.2 0.8-1.4 Activated partial thromboplastin time (aPTT) in platelet poor plasma bycoagulation assay - 07/08/18 16:07 Activated partial thromboplastin time (aPTT) in platelet poor plasma bycoagulation assay 23 s 24-35 Comprehensive metabolic panel - 07/08/18 16:07 Serum or plasma sodium measurement (moles/volume) 142 mmol/L 135-145 Serum or plasma potassium measurement (moles/volume) 4.7 mmol/L 3.6-5.0 Serum or plasma chloride measurement (moles/volume) 99 mmol/L 98-107 Carbon dioxide 19 mmol/L 21-32 Serum or plasma anion gap determination (moles/volume) 24 mmol/L 5-14 Serum or plasma urea nitrogen measurement (mass/volume) 34 mg/dL 7-18 Serum or plasma creatinine measurement (mass/volume) 1.36 mg/dL 0.60-1.30 Serum or plasma urea nitrogen/creatinine mass ratio 25 NRG Serum or plasma creatinine measurement with calculation of estimated glomerular filtration rate 38 NRG Serum or plasma glucose measurement (mass/volume) 142 mg/dL 70-105 Serum or plasma calcium measurement (mass/volume) 9.6 mg/dL 8.5-10.1 Serum or plasma total bilirubin measurement (mass/volume) 0.6 mg/dL 0.1-1.0 Serum or plasma alkaline phosphatase measurement (enzymatic activity/volume) 93 U/L 40-136 Serum or plasma aspartate aminotransferase measurement (enzymatic activity/volume) 15 U/L 5-34 Serum or plasma alanine aminotransferase measurement (enzymatic activity/volume) 12 U/L 0-55 Serum or plasma protein measurement (mass/volume) 7.1 g/dL 6.4-8.2 Serum or plasma albumin measurement (mass/volume) 4.4 g/dL 3.2-4.5 CALCIUM CORRECTED 9.3 mg/dL 8.5-10.1 TROPONIN T - 07/08/18 16:07 TROPONIN T 18 % <=10 Complete blood count (CBC) with automated white blood cell (WBC) differential - 07/08/18 19:35 Blood leukocytes automated count (number/volume) 9.9 10*3/uL 4.3-11.0 Blood erythrocytes automated count (number/volume) 4.84 10*6/uL 4.35-5.85 Venous blood hemoglobin measurement (mass/volume) 14.3 g/dL 11.5-16.0 Blood hematocrit (volume fraction) 42 % 35-52 Automated erythrocyte mean corpuscular volume 87 [foz_us] 80-99 Automated erythrocyte mean corpuscular hemoglobin (mass per erythrocyte) 30 pg 25-34 Automated erythrocyte mean corpuscular hemoglobin concentration measurement (mass/volume) 34 g/dL 32-36 Automated erythrocyte distribution width ratio 14.5 % 10.0- 14.5 Automated blood platelet count (count/volume) 174 10*3/uL 130-400 Automated blood platelet mean volume measurement 10.5 [foz_us] 7.4-10.4 Automated blood neutrophils/100 leukocytes 84 % 42-75 Automated blood lymphocytes/100 leukocytes 11 % 12-44 Blood monocytes/100 leukocytes 4 % 0-12 Automated blood eosinophils/100 leukocytes 1 % 0-10 Automated blood basophils/100 leukocytes 0 % 0-10 Blood neutrophils automated count (number/volume) 8.4 10*3 1.8-7.8 Blood lymphocytes automated count (number/volume) 1.1 10*3 1.0-4.0 Blood monocytes automated count (number/volume) 0.4 10*3 0.0- 1.0 Automated eosinophil count 0.1 10*3/uL 0.0-0.3 Automated blood basophil count (count/volume) 0.0 10*3/uL 0.0-0.1 Comprehensive metabolic panel - 07/08/18 19:35 Serum or plasma sodium measurement (moles/volume) 142 mmol/L 135-145 Serum or plasma potassium measurement (moles/volume) 4.1 mmol/L 3.6-5.0 Serum or plasma chloride measurement (moles/volume) 105 mmol/L 98-107 Carbon dioxide 23 mmol/L 21-32 Serum or plasma anion gap determination (moles/volume) 14 mmol/L 5-14 Serum or plasma urea nitrogen measurement (mass/volume) 33 mg/dL 7-18 Serum or plasma creatinine measurement (mass/volume) 1.23 mg/dL 0.60-1.30 Serum or plasma urea nitrogen/creatinine mass ratio 27 NRG Serum or plasma creatinine measurement with calculation of estimated glomerular filtration rate 43 NRG Serum or plasma glucose measurement (mass/volume) 133 mg/dL 70-105 Serum or plasma calcium measurement (mass/volume) 10.1 mg/dL 8.5-10.1 Serum or plasma total bilirubin measurement (mass/volume) 0.9 mg/dL 0.1-1.0 Serum or plasma alkaline phosphatase measurement (enzymatic activity/volume) 86 U/L 40-136 Serum or plasma aspartate aminotransferase measurement (enzymatic activity/volume) 15 U/L 5-34 Serum or plasma alanine aminotransferase measurement (enzymatic activity/volume) 13 U/L 0-55 Serum or plasma protein measurement (mass/volume) 6.6 g/dL 6.4-8.2 Serum or plasma albumin measurement (mass/volume) 4.2 g/dL 3.2-4.5 CALCIUM CORRECTED 9.9 mg/dL 8.5-10.1 Complete urinalysis with reflex to culture - 07/08/18 21:45 Urine color determination YELLOW NRG Urine clarity determination CLEAR NRG Urine pH measurement by test strip 7 5-9 Specific gravity of urine by test strip 1.010 1.016-1.022 Urine protein assay by test strip, semi-quantitative 1+ NEGATIVE Urine glucose detection by automated test strip NEGATIVE NEGATIVE Erythrocytes detection in urine sediment by light microscopy 1+ NEGATIVE Urine ketones detection by automated test strip NEGATIVE NEGATIVE Urine nitrite detection by test strip NEGATIVE NEGATIVE Urine total bilirubin detection by test strip NEGATIVE NEGATIVE Urine urobilinogen measurement by automated test strip (mass/volume) NORMAL NORMAL Urine leukocyte esterase detection by dipstick 1+ NEGATIVE Automated urine sediment erythrocyte count by microscopy (number/high power field) [HPF] NRG Automated urine sediment leukocyte count by microscopy (number/high power field) [HPF] NRG Bacteria detection in urine sediment by light microscopy MODERATE NRG Squamous epithelial cells detection in urine sediment by light microscopy 0-2 NRG Crystals detection in urine sediment by light microscopy PRESENT NRG Casts detection in urine sediment by light microscopy NONE NRG Mucus detection in urine sediment by light microscopy NEGATIVE NRG Complete urinalysis with reflex to culture YES NRG Amorphous sediment detection in urine sediment by light microscopy FEW JORGE PHOSPHATE NRG Bacterial urine culture - 07/08/18 21:45 Bacterial urine culture [id number] NRG COLONY COUNT <10,000 NRG FTX;REPORTABLE SUSCEPTIBILITY REPORTED 07/12/18 10:05 NRG RML Sensitivity Panel - 07/08/18 21:45 Gentamicin susceptibility test by minimum inhibitory concentration <= NRG Trimethoprim/sulfamethoxazole susceptibility test by minimum inhibitoryconcentration <= NRG Levofloxacin susceptibility test by minimum inhibitory concentration <= NRG Ampicillin susceptibility test by minimum inhibitory concentration <= NRG Cefazolin susceptibility test by minimum inhibitory concentration <= NRG Ceftriaxone susceptibility test by minimum inhibitory concentration <= NRG Ciprofloxacin susceptibility test by minimum inhibitory concentration <= NRG Meropenem susceptibility test by minimum inhibitory concentration <= NRG Nitrofurantoin susceptibility test by minimum inhibitory concentration 32 NRG Amoxicillin and clavulanate potassium susc GIOVANNI = NRG Serum or plasma troponin i.cardiac measurement (mass/volume) - 07/09/18 10:37 Serum or plasma troponin i.cardiac measurement (mass/volume) < ng/mL <0.028 Encounters ACCT No. Visit Date/Time Discharge Status Pt. Type Provider Facility Loc./Unit Complaint [id number] 07/27/2018 08:01:00 07/27/2018 23:59:59 CLS Outpatient RADHA MELCHOR, MEAGAN Mcgraw [facility] CARD CVA,HTN [id number] 07/21/2018 12:46:00 07/21/2018 23:59:59 CLS Outpatient MEAGAN GARCIA MD [facility] CARD CVA,HTN [id number] 07/08/2018 17:02:00 07/10/2018 11:21:00 DIS Inpatient ISABEL FARRIS MD [facility] ICU NEW ONSET SEIZURE [id number] 07/05/2018 08:51:00 07/05/2018 23:59:59 CLS Outpatient RANDY WATTERS MD [facility] RAD THROID NODULE,RT [id number] 04/15/2018 07:25:00 04/15/2018 23:59:59 CLS Preadmit MEAGAN GARCIA MD [facility] CARD CVA,HTN [id number] 03/28/2018 07:04:00 03/28/2018 10:45:00 DIS Outpatient MARCELINA BARRON MD [facility] ENDO DYSPHAGIA [id number] 03/21/2018 06:25:00 03/21/2018 15:47:00 DIS Outpatient MARCELINA BARRON MD [facility] PREOP EGD [id number] 03/15/2018 16:21:00 03/15/2018 18:55:00 DIS Emergency MAGDI SMITH MD [facility] ER R LEG SWELLING [id number] 08/03/2018 13:00:00 PEN Preadmit MEAGAN GARCIA MD [facility] CATH ABN STRESS TEST
[2018-08-03] MEDS ORDERED: HEParin (CATH LAB) 2,000 ML IV ONE (11:07)
[2018-08-03] MEDS ORDERED: LIDOCAINE 1% INJ 20 ML 20 ML VIAL ONE (11:07)
[2018-08-03] MEDS ORDERED: NS IV 1000 ML 1,000 ML ONE (11:07)
[2018-08-03 11:47] LABS: HEMOGLOBIN 14.4 G/DL (11.5-16.0); MEAN PLATELET VOLUME 10.9 FL (7.4-10.4); RED CELL DISTRIBUTION WIDTH 14.3 % (10.0-14.5); WHITE BLOOD COUNT 6.9 10^3/uL (4.3-11.0)
--- NOTE | 2018-08-03 11:48 | Diagnostic Imaging Report ---
INDICATION: Coronary artery disease, atrial fibrillation, hypertension, abnormal stress test.. TECHNIQUE: Single view chest 7:39 AM. CORRELATION STUDY: None FINDINGS: The heart size, mediastinal configuration and pulmonary vascularity are within normal limits. The lungs are clear with no consolidating infiltrate. There is no significant effusion or pneumothorax. IMPRESSION: 1. Negative appearing portable chest. Dictated by: Dictated on workstation # [id number]
[2018-08-03] MEDS ORDERED: CARV25TA PO (12:03)
[2018-08-03 12:07] LABS: INR 1.1 (0.8-1.4); PROTHROMBIN TIME PATIENT 14.7 SEC (12.2-14.7)
[2018-08-03 12:10] LABS: ALBUMIN 4.2 GM/DL (3.2-4.5); BILIRUBIN,TOTAL 0.7 MG/DL (0.1-1.0); CREATININE SERUM 1.04 MG/DL (0.60-1.30); POTASSIUM 4.1 MMOL/L (3.6-5.0); TOTAL PROTEIN 6.8 GM/DL (6.4-8.2)
[2018-08-03] MEDS ORDERED: fentaNYL INJECTION 100 MCG/2 ML AMP ONE (12:29)
[2018-08-03] MEDS ORDERED: MIDAZOLAM 5 MG/5 ML (VERSED) VIAL ONE (12:29)
[2018-08-03] MEDS ORDERED: ENALAPRILAT 2.5 MG/2 ML (VASOTEC) VIAL IV ONE (12:59)
[2018-08-03] MEDS ORDERED: hydrALAZINE (APESOLINE) 20 MG/ML VIAL ONE (13:12)
[2018-08-03] MEDS ORDERED: NS IV 1000 ML 1,000 ML IV SCH (13:20)
[2018-08-03] MEDS ORDERED: PATIENT MAY USE OWN MEDS, ALL PO SCH (13:30)
--- NOTE | 2018-08-03 13:33 | Cardiac Cath Report ---
Cardiac Cath Report Physician (s)/Recoater (s) Physician MEAGAN GARCIA MD Pre-Procedure Diagnosis Pre-Procedure Diagnosis: coronary artery disease Post-Procedure Note Procedure Start Date: August 03, 2018 Name of Procedure: left heart catheterization Aortic arch angiogram Findings/Procedure Note PROCEDURE NOTE: 72 years old lady with history of CVA occurred in January 2018, paroxysmal atrial fibrillation maintained on Eliquis. Had an abnormal stress test, scheduled for cardiac catheterization possible PTCA. After explaining the procedure to the patient, all pros and cons were explained, all questions were answered. The patient signed the consent and then she was placed on the cardiac catheterization laboratory. Groin was prepped SL fashion local anesthesia was used. Sheath placed in the right femoral artery. Gera right and left catheter were used to access the coronary system. Pigtail was used to access the left ventricular cavity. Left ventriculogram was done Aortic arch angiogram was done At the end of the procedure the sheath was removed. Closure device was used FINDINGS: Hemodynamics LV 195/23, and diastolic pressure 23 Aorta 176/85 mean of 119 ANATOMY: Left Main is free of obstructive disease Left Anterior Descending is totally occluded proximally, getting collaterals from the left system, the first diagonal artery has severe stenosis Left Circumflex is large dominant artery, mild to moderate disease proximally, severe stenosis with napkin ringing lesion at the midportion Right Coronory Artery moderate size nondominant artery with severe stenosis at the proximal and midportion LV Gram was done showing normal left ventricle with hypokinesia at the apex, estimated ejection fraction 45-50 percent Aorta evaluation done with aortic arch angiogram showing hypertensive changes in the aortic arch. Origin of the innominate artery, left carotid and subclavian artery showed atherosclerotic plaque and some tortuosity no obstructive disease CONCLUSION: 1. Totally occluded LAD receiving collaterals from the diagonal and circumflex artery 2. Severe stenosis at the proximal diagonal artery 3. Moderate severe stenosis with napkin ring lesion at the mid circumflex artery that is a large dominant artery 4. Moderate size right coronary artery, nondominant artery with severe stenosis proximal and midportion 5. Normal left ventricle size with hypokinesia at the apex, estimated ejection fraction 45-50 percent 6. Hypertensive changes in the aortic arch with tortuosity and calcification at the great vessels of the neck DISCUSSION AND RECOMMENDATION: patient will need to have a reevaluation for bypass surgery Anesthesia Type: Conscious Sedation Estimated blood loss (mL): 15 ml Contrast Amount: 80 ml Total Radiation Dose: 789 mGy Post-Procedure Diagnosis Post-operative diagnosis: Chest pain, chronic stable angina Coronary artery disease Chronic atrial fibrillation Hypertension Hyperlipidemia MEAGAN GARCIA MD August 03, 2018 13:33
--- NOTE | 2018-08-03 13:36 | Discharge Inst-Post CATH ---
Discharge Inst-CATH/EP Post Cardiac Cath/EP D/C Inst Follow Up/Plan Appointment with Dr. Rafael Conley next week Appointment with Dr. GARCIA's office in 2 weeks <b>CARDIAC CATH/EP PROCEDURE DISCHARGE INSTRUCTIONS</b> Cardiac Rehab Please be expecting a follow up call from Cardiac Rehab within in one week. ACTIVITY * Go Home directly and rest. * Limit activity of the leg (or wrist if it was used) for 7 days including aerobics, swimming, jogging, bicycling, etc. * Restrict stair-climbing for 7 days if possible, if not, climb up with your non-cath leg, then bring together on the same step. * Avoid lifting, pushing, pulling or excessive movement of the affected extremity for 7 days. * Customary sexual activity may be resumed after 2 days-use caution not to use a position that strains or causes pain to the affected extremity. * No driving for 24 hours. * NO SMOKING. * Avoid straining for bowel movements for 7 days. * Gentle walking on level ground is allowed. * Returning to work will depend on the type of procedure and the results. Your doctor will discuss this with you. CALL YOUR DOCTOR FOR ANY OF THE FOLLOWING: *If bleeding from the puncture site occurs- Apply gentle pressure to site with clean cloth and call your doctor or EMS. * If a knot or lump forms under the skin, increases in size, or causes pain. * If bruising appears to be worsening or moving further down your leg instead of disappearing. * Temperature above 101 F. CARE OF YOUR GROIN INCISION; * Bruising or purple discoloration of the skin near the puncture site is common. * You may shower only, no bathtub bathing for 5 days. Be careful to avoid slipping as your leg may feel stiff. * If a closure device was used on your femoral artery, please see the attached guide regarding care of the device and your leg. * Leave dressing on FOR 24 hours. CARE OF YOUR WRIST INCISION; * Bruising or purple discoloration of the skin near the puncture site is common. * You may shower. * DO NOT submerge wrist. * Leave dressing on FOR 24 hours. MEAGAN GARCIA MD August 03, 2018 13:36
--- NOTE | 2018-08-03 14:05 | NUR ---
Salas ESPINO, DEVELOPMENT EXECUTIVE RN, STATES THAT THE PATIENT HAS A HISTORY OF A STROKE AND AT TIMES HER SPEECH IS DIFFICULT TO UNDERSTAND.
== END 2018-08-03 18:00 | disposition home or self-care (01) ==
LOC: CATH 10:47 → SDC 10:47 → CATH 18:00
PROVIDERS: ATTEND Internal Medicine Cardiovascular Disease
DX: I25.118 Atherosclerotic heart disease of native coronary artery with other forms of angina pectoris (principal); I48.2 Chronic atrial fibrillation; I10 Essential (primary) hypertension; E78.2 Mixed hyperlipidemia; Z79.01 Long term (current) use of anticoagulants; R06.09 Other forms of dyspnea; Z86.73 Personal history of transient ischemic attack (TIA), and cerebral infarction without residual deficits; E11.9 Type 2 diabetes mellitus without complications; I65.23 Occlusion and stenosis of bilateral carotid arteries; R60.9 Edema, unspecified; Z79.82 Long term (current) use of aspirin; Z79.899 Other long term (current) drug therapy
CPT/HCPCS: 36221; 36415; 71045; 80053; 80061; 85027; 85610; 85730; 87081; 93458

== ENCOUNTER 2018-12-26 11:15 | Outpatient (RCR) | payer MEDICARE, MEDICAID | END 2018-12-29 | disposition home or self-care (01) | LOC: CR 11:15 | PROVIDERS: ATTEND Internal Medicine Cardiovascular Disease | DX: Z48.812 Encounter for surgical aftercare following surgery on the circulatory system (principal); Z95.5 Presence of coronary angioplasty implant and graft | CPT/HCPCS: 93798 ==

== ENCOUNTER 2019-01-30 11:18 | Outpatient (RCR) | payer MEDICARE, MEDICAID | END 2019-03-30 | disposition home or self-care (01) | LOC: CR 11:18 | PROVIDERS: ATTEND Internal Medicine Cardiovascular Disease | DX: Z48.812 Encounter for surgical aftercare following surgery on the circulatory system (principal); Z95.5 Presence of coronary angioplasty implant and graft | CPT/HCPCS: 93798 ==